=== PATIENT | male | born 1970 | race Caucasian/White ===

== ENCOUNTER 2019-05-14 10:00 | Emergency (ER) | payer OTHER ==
[2019-05-14 10:08] VITALS: BP 149/92; PULSE 68; TEMP 97.9; BMI 30.4
[2019-05-14] MEDS ORDERED: IBUPROFEN 400 MG TABLET (FP) PO ONE ×2 (10:50→10:52)
--- NOTE | 2019-05-14 10:53 | PDOC ---
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 Patient reports pain to the dorsal aspect of left midfoot with mild swelling. Denies numbness or tingling sensation. Denies difficulty with ambulation. Occurred: reports: just prior to arrival Past History - Past Medical History Allergies/Adverse Reactions: Allergies Allergy/AdvReac Type Severity Reaction Status Date / Time No Known Allergies Allergy Verified 05/14/19 10:07 Home Medications: Ambulatory Orders Ibuprofen 800 mg PO Q8H PRN #20 tablet 05/14/19 Metformin HCl [Glucophage] 1,000 mg PO BID 05/14/19 COPD: No Diabetes: Yes HTN: Yes - Psycho Social/Smoking Cessation Hx Smoking Status: No Smoking History: Never smoked Number of Cigarettes Smoked Daily: 0 Review of Systems - Review of Systems Able to Perform ROS?: Yes Is the patient limited Marshallese proficient: No Constitutional: No: Weakness HEENTM: No: Symptoms Reported Respiratory: No: Symptoms reported Cardiac (ROS): No: Symptoms Reported ABD/GI: No: Symptoms Reported Musculoskeletal: Yes: Symptoms Reported, See HPI, Muscle Pain (pain to dorsum of left foot with swelling) Integumentary: Yes: Symptoms Reported, See HPI, Other (swelling to dorsum of left foot) Neurological: No: Symptoms reported All Other Systems: Reviewed and Negative *Physical Exam - Vital Signs Last Vital Signs Temp Pulse Resp BP Pulse Ox 97.9 F 68 18 149/92 98 05/14/19 10:07 05/14/19 10:07 05/14/19 10:07 05/14/19 10:07 05/14/19 10:07 - Physical Exam Comments: 05/14/19 11:01 GENERAL: Well developed, well nourished. Awake and alert. No acute distress. PULMONARY: No evidence of respiratory distress. MUSCULOSKELETAL : mild tenderness over dorsum of right midfoot with mild swelling over second and third metatarsals. No ankle tenderness or swelling. No bony deformities SKIN: Warm and dry. Normal capillary refill. 1 mm area of bruising to dorsal aspect of distal phalange of left great toe. Mild swelling to dorsum of left foot over second and third metatarsals. NEUROLOGICAL: Alert, awake, appropriate. No motor deficits in the lower extremities. Gait is normal without ataxia. PSYCHIATRIC: Cooperative. Good eye contact. Appropriate mood and affect. General Appearance: Yes: Nourished, Appropriately Dressed. 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 Patient reports pain to the dorsal aspect of left midfoot with mild swelling. Denies numbness or tingling sensation. Denies difficulty with ambulation. Exam significant for mild swelling to dorsal aspect of midfoot over 3-4th metatarsals with moderate tenderness over 3-4 metatarsals of left foot. No ankle tenderness. Small area of bruising to distal phalanx of left great toe. No tenderness to toe. X-ray of left foot shows no acute fracture dislocation. Symptoms likely foot contusion. Ibuprofen 800 mg p.o. ordered for pain. Left foot wrapped with Ruel bandage. Postop boots given to help with ambulation. Patient advised to do cold compress a day switch to warm compress tomorrow as needed for swelling. Rx for Motrin sent as needed for pain. Patient advised to keep weight off foot for the next 24 hours and keep leg elevated. Patient stable for discharge Discharge - Discharge Information Problems reviewed: Yes Clinical Impression/Diagnosis: Contusion of left foot, initial encounter Injury of left foot Qualifiers: Encounter type: initial encounter Qualified Code(s): S99.922A - Unspecified injury of left foot, initial encounter Condition: Stable Disposition: HOME - Admission No - Additional Discharge Information Prescriptions: Ibuprofen 800 mg PO Q8H PRN #20 tablet PRN Reason: foot pain - Follow up/Referral - Patient Discharge Instructions Patient Printed Discharge Instructions: DI for Metatarsalgia Additional Instructions: X-ray of left foot shows no acute fracture or dislocation. pain is likely caused by contusion. Apply cold compress to left foot 2-3 times a day switch to warm compress tomorrow as needed for swelling. Keep left leg elevated for the next 24 hours. Take prescribed Motrin as needed for pain. Keep weight off and left foot for the next 24 hours. Follow-up with PCP as needed - Post Discharge Activity Work/Back to School Note: Back to Work
== END 2019-05-14 11:14 | disposition home or self-care (01) ==
LOC: JERFT 10:00
DX: S99.922A Unspecified injury of left foot, initial encounter (principal); W20.8XXA Other cause of strike by thrown, projected or falling object, initial encounter; Y93.89 Activity, other specified; Y92.9 Unspecified place or not applicable; Y99.0 Civilian activity done for income or pay; E11.9 Type 2 diabetes mellitus without complications; I10 Essential (primary) hypertension; Z79.84 Long term (current) use of oral hypoglycemic drugs
CPT/HCPCS: 73630-TC-LT; 99282-25

== ENCOUNTER 2019-09-03 12:04 | Emergency (ER) | payer OTHER ==
[2019-09-03 12:07] VITALS: TEMP 98; BMI 31.1
[2019-09-03] MEDS ORDERED: diazePAM CARPU-JECT 10 MG/2 ML DISP.SYRIN IM ONE (12:41)
[2019-09-03] MEDS ORDERED: KETOROLAC TROMETHAMINE 30 MG/1 ML VIAL IM ONE (12:42)
[2019-09-03] MEDS ORDERED: diazePAM CARPU-JECT 10 MG/2 ML DISP.SYRIN ONE (12:43)
[2019-09-03] MEDS ORDERED: KETOROLAC TROMETHAMINE 60 MG/2 ML VIAL ONE (12:44)
--- NOTE | 2019-09-03 13:14 | PDOC ---
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 He notes that he was having an average night at work, no more or less stress than normal, and was not exerting himself significantly at the onset of symptoms. Describes worsening left neck pain with turning his head to the right. States that the pain became unbearable just BUSINESS EDITOR to the ED and his colleagues had to assist him into the ED from work. He has never had pain like this before, did not take any medications for pain. Denies any chest pain, palpitations, SOB, abdominal pain, back pain, headache, vision changes, dizziness, or other symptoms. Past History - Past Medical History Allergies/Adverse Reactions: Allergies Allergy/AdvReac Type Severity Reaction Status Date / Time No Known Allergies Allergy Verified 09/03/19 12:06 Home Medications: Ambulatory Orders Metformin HCl [Glucophage] 1,000 mg PO BID 05/14/19 Methocarbamol [Robaxin-750] 750 mg PO QID #20 tablet 09/03/19 COPD: No Diabetes: Yes HTN: Yes - Psycho Social/Smoking Cessation Hx Smoking Status: No Smoking History: Never smoked Number of Cigarettes Smoked Daily: 0 Review of Systems - Review of Systems Able to Perform ROS?: Yes Comments:: 09/03/19 13:34 GEN: no fever, chills, malaise, or generalized weakness HEENT: no ear pain, congestion, sore throat, vision change, or eye pain CV: no chest pain, palpitations, lightheadedness, syncope, or edema RESP: no SOB, wheezing, or cough GI: no abdominal pain, nausea, vomiting, diarrhea, constipation, or rectal bleed : no dysuria, hematuria, or discharge MSK: left neck pain, no joint swelling or pain NEURO: no headache, vertigo, numbness, tingling, or focal weakness PSYCH: no SI, HI, or behavior change SKIN: no jaundice, rash, lesions, or unexplained bruises ROS otherwise negative except as noted in HPI *Physical Exam - Vital Signs Last Vital Signs Temp Pulse Resp BP Pulse Ox 98.0 F 80 16 180/99 H 100 09/03/19 12:06 09/03/19 12:06 09/03/19 12:06 09/03/19 12:06 09/03/19 12:06 - Physical Exam 09/03/19 13:34 GENERAL: uncomfortable-appearing, laying flat on back and receiving medications from RN, A/Ox4, mild distress, answers questions appropriately HEENT: PERRLA, EOMI, moist mucous membranes NECK/BACK: left lateral neck spasm, holding neck still without rotating head, no carotid bruits, no midline ttp, no spinal stepoff or deformity, no hematoma CARDIOVASCULAR: regular rate/rhythm, no MGR, strong peripheral pulses, capillary refill <2 seconds, extremities wwp, no edema LUNGS/RESPIRATORY: no respiratory distress, CTAB GI/ABDOMEN: symmetric [id number], normoactive BS, soft, no ttp, no midline pulsatile masses : no CVA tenderness EXTREMITIES: normal shoulder ROM, no muscle atrophy, no acute deformity SKIN: warm and dry, no pallor, no jaundice, no rash, no bruising, no skin breakdown, no cuts, no lesions NEUROLOGICAL: GCS 15, CN II-XII grossly intact, 5/5 strength proximally and distally, no facial droop ED Treatment Course - Medications Given in the ED: ED Medications Discontinued Medications Generic Name Dose Route Start Last Admin Trade Name Freq PRN Reason Stop Dose Admin Diazepam 10 mg 09/03/19 12:41 09/03/19 12:51 Valium Injection - IM 09/03/19 12:42 10 mg ONCE ONE Administration Ketorolac Tromethamine 30 mg 09/03/19 12:42 09/03/19 12:52 Toradol Injection - IM 09/03/19 12:43 30 mg ONCE ONE Administration Medical Decision Making - Medical Decision Making 09/03/19 13:40 Adult patient p/w left lateral neck pain which is positional, worsens with turning to the right. Initial Vital Signs Temp Pulse Resp BP Pulse Ox 98.0 F 80 16 180/99 H 100 09/03/19 12:06 09/03/19 12:06 09/03/19 12:06 09/03/19 12:06 09/03/19 12:06 Exam: As noted in Physical Exam section. DDX IBNLT: Most likely torticollis/spasm, much less likely dissection without bruit or neuro findings, also unlikely ACS given lack of chest pain/SOB/back pain/nausea/anxiety. W/U ordered: None at this time TX ordered: Toradol and Valium IM 09/03/19 14:40 This patient has gotten significant relief of symptoms while in the ED. On last reassessment, vitals are wnl, pain is reasonably controlled, and exam is benign. Workup is not concerning for emergency-level pathology at this time. This patient is appropriate for discharge with close outpatient follow up. They are comfortable with this plan and will follow up with PCP in 1-3 days. Specific return precautions are discussed and they will come back to the ER if necessary. Discharge - Discharge Information Problems reviewed: Yes Clinical Impression/Diagnosis: Neck pain on left side Condition: Stable Disposition: HOME - Admission No - Additional Discharge Information Prescriptions: Methocarbamol [Robaxin-750] 750 mg PO QID #20 tablet - Follow up/Referral Referrals: ON STAFF,NOT [Non Staff, Medical] - - Patient Discharge Instructions Additional Instructions: You were seen in the ER for neck pain. We did an exam, and gave you medications for the pain which did seem to help. After our assessment, we do not believe you are having a medical emergency at this time, and we believe you are safe to go home. Please pharmacy picking technician the Robaxin prescription we are sending to your pharmacy and take this as needed for pain, following the instructions on the bottle. Also take Tylenol and Motrin for pain as needed. Please follow up with your primary care provider in 1-3 days. Call their clinic, tell them you were seen in the ER, and tell them you need a follow-up. If you have any new or worsening symptoms, please come back to the ER at any time (24 hours a day). If you are having severe or life threatening symptoms, or symptoms that make it unsafe to drive or have someone drive you, please call 911. - Post Discharge Activity Work/Back to School Note: Back to Work
[2019-09-03 14:55] VITALS: BP 139/96; PULSE 83
--- NOTE | 2019-09-03 14:56 | PDOC ---
Documentation entered by Joy Mancilla SCRIBE, acting as scribe for Chucho Teixeira MD. Chucho Teixeira MD: This documentation has been prepared by the Charo manzanares Adrianna, SCRIBE, under my direction and personally reviewed by me in its entirety. I confirm that the documentation accurately reflects all work, treatment, procedures, and medical decision making performed by me. History of Present Illness - General Chief Complaint: Pain, Acute Stated Complaint: NECK PAIN Time Seen by Provider: 09/03/19 12:32 - History of Present Illness Initial Comments: The patient is a 48 year old male, with a significant PMH of diabetes, who presents to the ED for evaluation of neck pain since last night. Patient works for the [email or web address], and notes he felt some discomfort in the neck during a few calls. Today, the pain became significantly worse, and notes during his last call he could not move his neck or get out of the car. He complains of left- sided posterior neck pain, that radiates into the left shoulder blade. Patient describes the pain as sharp and stabbing when moving the neck, and a dull ache when he is still. He denies any trauma to the neck, and cannot recall any heavy loading or sudden movement that may be the cause of his pain. Denies any upper or lower extremity weakness. Allergies: NKA, NKDA Surgical History: None reported Social History: Denies EtOH, tobacco, or illicit drug use. Past History - Past Medical History Allergies/Adverse Reactions: Allergies Allergy/AdvReac Type Severity Reaction Status Date / Time No Known Allergies Allergy Verified 09/03/19 12:06 Home Medications: Ambulatory Orders Metformin HCl [Glucophage] 1,000 mg PO BID 05/14/19 Methocarbamol [Robaxin-750] 750 mg PO QID #20 tablet 09/03/19 COPD: No Diabetes: Yes HTN: Yes - Psycho Social/Smoking Cessation Hx Smoking Status: No Smoking History: Never smoked Number of Cigarettes Smoked Daily: 0 Review of Systems - Review of Systems Comments:: Constitutional: No recent illness; no fever ENT: No sore throat Cardiovascular: No palpitations; no chest pain Pulmonary: No cough; no trouble breathing Gastrointestinal: No nausea; no vomiting; no diarrhea Genitourinary: No urinary problems; no hematuria Skin: No rash Lymph system: No swollen glands Musculoskeletal: +Left-sided posterior neck pain that radiates into the left shoulder blade. No joint swelling Neurological: No weakness; no numbness; No Headache; no vertigo; no lightheadedness Psychiatric:No anxiety; no depression ROS: A complete review of 10 out of 10 review of systems is taken and is negative apart from what is previously mentioned above and in the HPI. *Physical Exam - Vital Signs Last Vital Signs Temp Pulse Resp BP Pulse Ox 98.0 F 80 16 180/99 H 100 09/03/19 12:06 09/03/19 12:06 09/03/19 12:06 09/03/19 12:06 09/03/19 12:06 - Physical Exam Vitals: Triage vital signs reviewed General Appearance: No acute distress, well nourished, well developed Head: Atraumatic Neck: +left paraspinal tenderness to palpation. Supple; No nuchal rigidity. No JVD or bruits. Chest Wall: Nontender Extremities: Full range of motion to all extremities, no cyanosis, clubbing, or edema Skin: Warm and dry, no rashes or lesions, no rash, no petechiae Neuro: AOX3; Cranial Nerves 2-12 grossly intact, Strength intact to all extremities, Sensation intact to all extremities. No upper or lower extremity weakness. Psych: Normal mood, normal affect ED Treatment Course - Medications Given in the ED: ED Medications Discontinued Medications Generic Name Dose Route Start Last Admin Trade Name Freq PRN Reason Stop Dose Admin Diazepam 10 mg 09/03/19 12:41 09/03/19 12:51 Valium Injection - IM 09/03/19 12:42 10 mg ONCE ONE Administration Ketorolac Tromethamine 30 mg 09/03/19 12:42 09/03/19 12:52 Toradol Injection - IM 09/03/19 12:43 30 mg ONCE ONE Administration Medical Decision Making - Medical Decision Making 48 year old male with history of diabetes presents to the ED with neck pain. Plan: Toradol, valium, reassess No trauma no sudden movement history examination consistent with torticollis no anterior neck discomfort no bruit noted on examination reproducible paraspinal left neck left trap discomfort worse with movement Status post pain medication patient feels much better will discharge with short course of Robaxin and NSAIDs Findings, need for follow-up and strict return instructions cussed with patient. Discharge - Discharge Information Problems reviewed: Yes Clinical Impression/Diagnosis: Neck pain on left side Condition: Stable Disposition: HOME - Additional Discharge Information Prescriptions: Methocarbamol [Robaxin-750] 750 mg PO QID #20 tablet - Follow up/Referral Referrals: ON STAFF,NOT [Non Staff, Medical] - - Patient Discharge Instructions Additional Instructions: You were seen in the ER for neck pain. We did an exam, and gave you medications for the pain which did seem to help. After our assessment, we do not believe you are having a medical emergency at this time, and we believe you are safe to go home. Please mixing picker tender the Robaxin prescription we are sending to your pharmacy and take this as needed for pain, following the instructions on the bottle. Also take Tylenol and Motrin for pain as needed. Please follow up with your primary care provider in 1-3 days. Call their clinic, tell them you were seen in the ER, and tell them you need a follow-up. If you have any new or worsening symptoms, please come back to the ER at any time (24 hours a day). If you are having severe or life threatening symptoms, or symptoms that make it unsafe to drive or have someone drive you, please call 911. - Post Discharge Activity Work/Back to School Note: Back to Work
== END 2019-09-03 14:52 | disposition home or self-care (01) ==
LOC: JER 12:04
PROC: 3E0233Z Introduction of Anti-inflammatory into Muscle, Percutaneous Approach (ICD-10-PCS; principal; 2019-09-03)
PROC: 3E023NZ Introduction of Analgesics, Hypnotics, Sedatives into Muscle, Percutaneous Approach (ICD-10-PCS; 2019-09-03)
DX: M54.2 Cervicalgia (principal)
CPT/HCPCS: 99282-25